=== PATIENT | female | born 1940 | race Caucasian/White ===

== ENCOUNTER 2024-11-19 13:04 | Outpatient (AMB) | payer MEDICARE, SELFPAY ==
--- OUTSIDE RECORDS SUMMARY | 2024-11-19 15:29 | XMS_ITS | Patient Health Record ---
Author Organization [facility] Address [address] [place] [address] Care Team Providers Care Director Skills Name Role Phone Ganga Mosley M.D.a Primary Care Provider Walt Schmitt Unavailable [phone] Reason For Referral No Information Plan Of Treatment No Information Insurance Providers Payer Name Payer Address Payer Phone Subscriber Number Group Number Insured Name Patient Relationship to Insured Coverage Start Date Coverage End Date [employer] [address] [place] [address] [phone] [id number] JESSIE HAMILTON Self - patient is the insured Medical (General) History Medical History History ICD Code colonoscopy 03-19-2003 colon polyps Denies ID,DM,CVA,Lung disease,renal dise ase hypertension history of diverticulitis in 2000 treate d with antibiotics Surgical History Surgery Date(Month/Year) complete hysterectomy
== END 2024-11-19 13:09 | disposition home or self-care (01) ==
LOC: HO.HMGAL 13:04
PROVIDERS: PCP Family Medicine; Visit Provider Registered Nurse Emergency
DX: J30.89 Other allergic rhinitis (principal)
CPT/HCPCS: 95117; 95165

== ENCOUNTER 2024-12-17 12:47 | Outpatient (AMB) | payer MEDICARE, SELFPAY | END 2024-12-17 13:24 | disposition home or self-care (01) | LOC: HO.HMGAL 12:47 | PROVIDERS: PCP Internal Medicine; Visit Provider Registered Nurse Emergency | DX: J30.89 Other allergic rhinitis (principal) | CPT/HCPCS: 95117; 95165 ==

== ENCOUNTER 2025-01-14 11:52 | Outpatient (AMB) | payer MEDICARE, SELFPAY ==
--- OUTSIDE RECORDS SUMMARY | 2025-01-14 23:07 | XMS_ITS | Patient Health Record ---
Author Organization [facility] Address [address] [place] [address] Care Team Providers Care Lead Radiation Therapist Name Role Phone Ganga Mosley M.D.a Primary Care Provider Walt Schmitt Unavailable [phone] Reason For Referral No Information Plan Of Treatment No Information Insurance Providers Payer Name Payer Address Payer Phone Subscriber Number Group Number Insured Name Patient Relationship to Insured Coverage Start Date Coverage End Date [employer] [address] [place] [address] [id number] JESSIE HAMILTON Self - patient is the insured Medical (General) History Medical History History ICD Code colonoscopy 03-19-2003 colon polyps Denies [place],DM,CVA,Lung disease,renal dise ase hypertension history of diverticulitis in 2000 treate d with antibiotics Surgical History Surgery Date(Month/Year) complete hysterectomy
== END 2025-01-14 11:53 | disposition home or self-care (01) ==
LOC: HO.HMGAL 11:52
PROVIDERS: PCP Internal Medicine; Visit Provider Registered Nurse Emergency
DX: J30.89 Other allergic rhinitis (principal)
CPT/HCPCS: 95117; 95165

== ENCOUNTER 2025-02-11 12:39 | Outpatient (AMB) | payer MEDICARE, SELFPAY ==
--- OUTSIDE RECORDS SUMMARY | 2025-02-11 16:49 | XMS_ITS | Patient Health Record ---
Author Organization [facility] Address [address] [place] [address] Care Team Providers Care Residence Leasing Agent Name Role Phone Ganga Mosley M.D.a Primary Care Provider Walt Schmitt Unavailable [phone] Reason For Referral No Information Plan Of Treatment No Information Insurance Providers Payer Name Payer Address Payer Phone Subscriber Number Group Number Insured Name Patient Relationship to Insured Coverage Start Date Coverage End Date [employer] [address] [place] [address] [phone] [id number] JESSIE HAMILTON Self - patient is the insured Medical (General) History Medical History History ICD Code colonoscopy 03-19-2003 colon polyps Denies [place],DM,CVA,Lung disease,renal dise ase hypertension history of diverticulitis in 2000 treate d with antibiotics Surgical History Surgery Date(Month/Year) complete hysterectomy
== END 2025-02-11 12:40 | disposition home or self-care (01) ==
LOC: HO.HMGAL 12:39
PROVIDERS: PCP Internal Medicine; Visit Provider Registered Nurse Emergency
DX: J30.89 Other allergic rhinitis (principal)
CPT/HCPCS: 95117; 95165